=== PATIENT | female | born 1995 | race Caucasian/White ===

== ENCOUNTER 2017-01-08 20:06 | Emergency (ER) | payer BC ==
[~2017-01-08] VITALS: Ht 162.6 cm; Wt 85.6 kg
[2017-01-08 22:10] LABS: HEMATOCRIT 42.8 % (36.0-46.0); MCH 26.6 PG (29.0-34.0); MCHC 31.8 G/DL (30.0-36.0); MCV 83.8 FL (83-99); MEAN PLAT.VOLUME 10.2 uM^3 (9.5-12.4); PLATELET COUNT 386 K/uL (156-360); RBC DIS.WIDTH-CV 13.3 % (11.8-14.6); RED BLOOD COUNT 5.11 M/uL (3.80-5.20); WHITE BLOOD COUNT 10.5 K/uL (4.1-10.2)
[2017-01-08 22:24] LABS: CHLORIDE 106 mEq/L (99-109); POTASSIUM 3.8 mEq/L (3.7-5.4); SODIUM 141 mEq/L (136-147)
[2017-01-08 22:27] LABS: ANION GAP 10 MEQ/L (2-14); GLUCOSE 105 mg/dL (70-99)
[2017-01-08 22:28] LABS: TOTAL BILIRUBIN 0.2 mg/dL (0.0-1.0)
[2017-01-08 22:30] LABS: ALKALINE PHOSPHATASE 148 IU/L (3-129); GFR ESTIMATE (CALCULATED) > 59 mL/min/
[2017-01-08 22:31] LABS: UREA NITROGEN (BUN) 6 mg/dL (9-23)
[2017-01-08 23:00] LABS: INTERNAL CONTROL VALID? YES; MONOSPOT (MONONUCLEOSIS SEROL) POSITIVE
[2017-01-08 23:25] LABS: QUANTITATIVE HCG < 4.0 MIU/ML
[2017-01-08 23:27] LABS: ABS NEUTROPHIL COUNT 6.9; ANISOCYTOSIS 1+; ATYPICAL LYMPHOCYTE 2.6 %; EOSINOPHILS 9.7 % (0-5.0); LYMPHOCYTES 18.4 % (15.0-45.0); MICROCYTOSIS 1+; PLAT.SUFFICIENCY ADEQUATE; SEG.NEUTROPHILS 65.8 % (46.0-76.0)
[2017-01-09] MEDS ORDERED: NORCO 5/3251 TABLET PO (00:10)
[2017-01-09] MEDS ORDERED: MEDROL DOSEPAK4 MG PO (00:10)
[2017-01-09 00:36] VITALS: BP 118/72
== END 2017-01-09 00:40 | disposition home or self-care (01) ==
LOC: EME 20:06
PROVIDERS: Physician Assistant
DX: B27.90 Infectious mononucleosis, unspecified without complication (principal); R10.12 Left upper quadrant pain; J02.9 Acute pharyngitis, unspecified; F17.200 Nicotine dependence, unspecified, uncomplicated
CPT/HCPCS: 76705; 80053; 84443; 84702; 85007; 85027; 86308; 99281; 99284; J1885; J2270; J2405; J7030

== ENCOUNTER 2017-03-08 22:46 | Emergency (ER) | payer OTHER ==
[~2017-03-08] VITALS: Ht 162.6 cm; Wt 84.8 kg
[~2017-03-08 22:46] MED LIST: MEDROL DOSEPAK4 MG PO; NORCO 5/3251 TABLET PO
[2017-03-09] MEDS ORDERED: PROVENTIL,2.5 MG/3 M IH (00:02)
[2017-03-09] MEDS ORDERED: PREDNISONE50 MG PO (00:02)
[2017-03-09] MEDS ORDERED: VENTOLIN HFA18 GM IH (00:02)
[2017-03-09] MEDS ORDERED: ZITHROMAX Z-PA250 MG PO (00:02)
[2017-03-09 00:11] VITALS: BP 116/59
== END 2017-03-09 00:12 | disposition home or self-care (01) ==
LOC: EME 22:46
DX: J18.9 Pneumonia, unspecified organism (principal); J02.9 Acute pharyngitis, unspecified; H92.01 Otalgia, right ear; J45.909 Unspecified asthma, uncomplicated; F17.200 Nicotine dependence, unspecified, uncomplicated
CPT/HCPCS: 71020; 94640; 99281; 99284; J7512